=== PATIENT | female | born 1990 | race Caucasian/White ===

== ENCOUNTER 2023-04-29 00:19 | Inpatient (IN) | payer BC ==
[2023-04-29] MEDS ORDERED: Sodium Chloride 0.9% 20 ML SDV IV PRN (00:54)
[2023-04-29] MEDS ORDERED: Carboprost Tromethamine 250 MCG/1 mL Vial IM PRN (00:54)
[2023-04-29] MEDS ORDERED: Sodium Chloride 0.9% 2.5 ML Syringe FLUSH PRN (00:54)
[2023-04-29] MEDS ORDERED: Misoprostol 25 MCG (1/4 of 100 MCG) Tab VAG PRN ×2 (00:54)
[2023-04-29] MEDS ORDERED: Water For Irrigation,Sterile 1,000 ML Container IRR PRN (00:54)
[2023-04-29] MEDS ORDERED: Sodium Chloride 0.9% 10 ML Syringe FLUSH PRN (00:54)
[2023-04-29] MEDS ORDERED: Tranexamic Acid IN NACL,ISO-OS 1,000 MG in Premix Bag 1 BAG IV PRN ×2 (00:54)
[2023-04-29] MEDS ORDERED: Terbutaline 1 MG/ML SDV SUBCUT PRN (00:54)
[2023-04-29] MEDS ORDERED: Misoprostol 200 MCG Tab PO PRN (00:54)
[2023-04-29] MEDS ORDERED: Lidocaine 1% 50 ML MDV INJECT PRN (00:54)
[2023-04-29] MEDS ORDERED: Methylergonovine 0.2 MG/1 ML Amp IM PRN (00:54)
[2023-04-29] MEDS ORDERED: Oxytocin/0.9 % Sodium Chloride 30 UNIT/500 ML BAG IV SCH ×2 (01:00)
[2023-04-29 01:58] LABS: HEMATOCRIT 34.1 % (37.0-47.0); HEMOGLOBIN 11.3 g/dL (12.0-16.0); MEAN CORPUSCULAR HGB CONC 33.1 g/dL (32.0-36.0); MEAN CORPUSCULAR VOLUME 87.4 fL (83.0-99.0); MEAN PLATELET VOLUME 10.3 fL (9.4-12.3); PLATELET COUNT,PLT 230 K/uL (150-400); WHITE BLOOD CELL COUNT,WBC 12.81 K/uL (3.9-11.3)
[2023-04-29] MEDS ORDERED: Nalbuphine 10 MG/0.5 ML Syringe IVPUSH PRN (02:49)
[2023-04-29] MEDS: Lactated Ringers 1,000 ML IV SCH ×6 (03:20→22:09)
[2023-04-29] MEDS ORDERED: ePHEDrine 50 MG/ML SDV IVPUSH PRN ×2 (07:36)
[2023-04-29] MEDS ORDERED: Phenylephrine HCl 0.5 MG/5 ML AMP IVPUSH PRN (07:36)
[2023-04-29] MEDS ORDERED: Ropivacaine HCl/PF 400 MG in Premix Bag 1 BAG EPIDUR SCH (07:45)
[2023-04-29] MEDS ORDERED: Ondansetron 4 MG/2 ML SDV IVPUSH PRN (23:00)
[2023-04-30] MEDS ORDERED: Ibuprofen 400 MG Tab PO PRN (03:27)
[2023-04-30] MEDS ORDERED: Acetaminophen 500 MG Tab PO PRN (03:27)
[2023-04-30] MEDS ORDERED: Witch Hazel Medicated Pads 40/Jar TOP PRN (03:27)
[2023-04-30] MEDS ORDERED: Benzocaine/Menthol 20%-0.5% Spray 78 GM Cannister TOP PRN (03:27)
[2023-04-30] MEDS ORDERED: Bisacodyl 10 MG Supp RECTAL PRN (03:27)
[2023-04-30] MEDS ORDERED: Lanolin 100% Cream 7 GM Tube TOP PRN (03:27)
[2023-04-30] MEDS: Ibuprofen 800 MG Tab PO PRN ×3 (04:05→20:15)
[2023-04-30] MEDS: Acetaminophen 500 MG Tab PO PRN ×3 (04:40→13:39)
[2023-04-30 06:51] LABS: PH,UMBILICAL ARTERIAL 7.332 (7.18-7.38); PH,UMBILICAL VENOUS 7.337 (7.25-7.45)
[2023-04-30] MEDS: Docusate Sodium 100 MG Cap PO PRN (08:58)
[2023-05-01] MEDS: Ibuprofen 800 MG Tab PO PRN ×2 (05:58→13:12)
[2023-05-01 06:39] LABS: HEMATOCRIT 32.5 % (37.0-47.0)
[2023-05-01] MEDS: Docusate Sodium 100 MG Cap PO PRN (13:10)
== END 2023-05-01 13:53 | disposition home or self-care (01) | DRG 560 ==
LOC: MW.OBCHECK 00:19 → MW.OB 00:21 → MW.OBCHECK 00:55 → OBSVTOIN 04-30 02:11 → MW.OB 04-30 06:15
PROVIDERS: ADMIT Obstetrics & Gynecology; ATTEND Obstetrics & Gynecology
PROC: 10E0XZZ Delivery of Products of Conception, External Approach (ICD-10-PCS; principal; 2023-04-30)
PROC: 0HQ9XZZ Repair Perineum Skin, External Approach (ICD-10-PCS; 2023-04-30)
PROC: 3E033VJ Introduction of Other Hormone into Peripheral Vein, Percutaneous Approach (ICD-10-PCS; 2023-04-30)
PROC: 3E0P7VZ Introduction of Hormone into Female Reproductive, Via Natural or Artificial Opening (ICD-10-PCS; 2023-04-30)
PROC: 3E0R3BZ Introduction of Anesthetic Agent into Spinal Canal, Percutaneous Approach (ICD-10-PCS; 2023-04-30)
PROC: 00HU33Z Insertion of Infusion Device into Spinal Canal, Percutaneous Approach (ICD-10-PCS; 2023-04-30)
DX: O70.0 First degree perineal laceration during delivery (principal); Z37.0 Single live birth; O77.0 Labor and delivery complicated by meconium in amniotic fluid; Z3A.40 40 weeks gestation of pregnancy
CPT/HCPCS: 36415; 51701; 51702; 59025; 59409; 82803; 85014; 85018; 85027; 86592; 86850; 86900; 86901; A9270-GY; J2405; J2590; J3105; J7120